=== PATIENT | female | born 1960 | race Caucasian/White ===

== ENCOUNTER 2016-10-15 08:29 | Day surgery (SDC) | payer OTHER ==
--- NOTE | 2016-10-09 10:03 | HP ---
Admitting History and Physical - Primary Care Physician PCP: Bishop Grey - Admission Chief Complaint: Right breast cancer History of Present Illness: 56 year old postmenapausal female with screening mammogram showing right upper outer quadrant assymetry and an US showing 4mm vague density at 12:00 region right breast. 08/2016 Right breast US core biopsy showed invasive ductal carcinoma. MRI breast 07/2016 showed cancer to be loclized at right 10:00 region with suspicious right breast are lower inner aspect which turned out to be tortuous blood vessel. History Source: Patient Limitations to Obtaining History: No Limitations - Past Medical History Endocrine: Yes: Hyperparathyroidism, Other (Hypercalcemia with H/O thymoma) - Past Surgical History Additional Past Surgical History: excision of thymoma and parathyroidectomy 2014 - Smoking History Smoking history: Never smoked Have you smoked in the past 12 months: No - Alcohol/Substance Use Hx Alcohol Use: Yes (rarely) Home Medications - Allergies Allergies/Adverse Reactions: Allergies Allergy/AdvReac Type Severity Reaction Status Date / Time No Known Drug Allergies Allergy Verified 10/10/16 14:16 - Home Medications Home Medications: Ambulatory Orders Calcium Carbonate [Calcium] 500 mg PO DAILY 10/10/16 Cholecalciferol (Vitamin D3) [Vitamin D3] 2,000 unit PO DAILY 10/10/16 Family Disease History - Family Disease History Family History: Denies Physical Examination Constitutional: Yes: Well Nourished Breast(s): Yes: Other (moderately C cup breasts without nipple discharge slight echymosis S/P core biopsy right central breast no palpable suspicious densitites in either breast and no adenopathy bilaterally) Problem List - Problems (1) Breast cancer, right Code(s): C50.911 - MALIGNANT NEOPLASM OF UNSP SITE OF RIGHT FEMALE BREAST Qualifiers: Breast location: upper outer quadrant of breast Patient sex: female Assessment/Plan Right breast wide excision, mammogram needle localization, sentenel node biopsy ,lymphoscintogram, possible axillary node dissection, intraop radiation
[2016-10-10 14:49] VITALS: BMI 28.9
[2016-10-15] MEDS ORDERED: MIDAZOLAM HCL 2 MG/2 ML SINGLE DOSE VIAL ONE (12:07)
[2016-10-15] MEDS ORDERED: ONDANSETRON 4 MG/2 ML VIAL ONE (12:10)
[2016-10-15] MEDS ORDERED: DEXAMETHASONE SOD PHOSPHATE 4 MG/1 ML VIAL ONE (12:10)
[2016-10-15] MEDS ORDERED: KETOROLAC TROMETHAMINE 30 MG/1 ML VIAL ONE (12:10)
[2016-10-15] MEDS ORDERED: ceFAZolin SODIUM 1 GM VIAL ONE (12:10)
[2016-10-15] MEDS ORDERED: ISOSULFAN BLUE 10 MG/ML VIAL SQ ONE (12:39)
[2016-10-15] MEDS ORDERED: BUPIVACAINE HCL/PF 0.5% (5MG/ML) 10 ML VIAL ONE (14:42)
[2016-10-15] MEDS ORDERED: ONDANSETRON 4 MG/2 ML VIAL IVPUSH PRN (14:53)
[2016-10-15] MEDS ORDERED: oxyCODONE HCL 5 MG TABLET PO PRN (14:53)
[2016-10-15] MEDS ORDERED: LACTATED RINGERS SOLUTION 1,000 ML IV SCH (15:00)
[2016-10-15] MEDS ORDERED: ONDANSETRON 4 MG/2 ML VIAL IVPB PRN (16:53)
[2016-10-15] MEDS ORDERED: KETOROLAC TROMETHAMINE 30 MG/1 ML VIAL IVPUSH PRN (16:53)
[2016-10-15] MEDS ORDERED: PROMETHAZINE HCL 25 MG/1 ML VIAL IVPB PRN (16:54)
[2016-10-15] MEDS ORDERED: DEXTROSE 5%-0.45% SALINE 1,000 ML IV SCH (17:00)
[2016-10-15] MEDS ORDERED: PROMETHAZINE HCL 25 MG/1 ML VIAL ONE (17:09)
[2016-10-15] MEDS ORDERED: oxyCODONE HCL 5 MG TABLET ONE (18:37)
[2016-10-15 19:52] VITALS: BP 128/78; PULSE 82; TEMP 98.4
--- NOTE | 2016-10-16 11:41 | OP ---
DATE OF OPERATION: 10/15/2016 PREOPERATIVE DIAGNOSIS: Right breast 12 o'clock cancer overlapping regions. POSTOPERATIVE DIAGNOSIS: Right breast 12 o'clock cancer overlapping regions. PROCEDURE: Right breast partial mastectomy with mammographic needle localization of right axillary sentinel node lymph node biopsy with partial tissue transfer closure and intraoperative radiation with a 4-cm Intrabeam device. PRIMARY SURGERY: Char Grey MD COUNSELOR DORMITORY: JUANITO Dubois RADIATION ONCOLOGIST: Present for the procedure, Aaron Shepherd MD ANESTHESIA: General laryngeal mask airway anesthesia. COMPLICATIONS: None. Briefly, the patient is a 56-year-old postmenopausal white female with [place], [place], and [place]ian[place] ancestry. She has no family of breast or ovarian cancer. She was found to have some asymmetry in the upper outer aspect of the right base on mammography, and ultrasound showed a 4-mm suspicious density, and she underwent an ultrasound-guided core biopsy showing a well-differentiated invasive duct cancer, which was ER/CA positive, HER2/juan francisco negative. MRI showed this to be localized with just a torturous vessel on the lower inner aspect of the right breast. The patient was advised on undergoing a right breast wide excision with needle localization and sentinel node lymph node biopsy. She did consent to intraoperative radiation as part of the target [place] trial. DESCRIPTION OF PROCEDURE: The patient was brought in to ambulatory surgery on October 15, 2016. She first underwent a needle localization and lymphoscintigraphy at [facility] and was brought to the [facility] holding area. In the holding area, site verification was made, and informed consent was obtained. She was brought into the operating room and laid on the OR table in the supine position. Venodynes were placed on the lower extremities. She had one gram of Ancef prior to the incision. She underwent general laryngeal mask airway anesthesia. Then 3 mL of Lymphazurin blue was injected intradermally in the peritumor location around the needle localization side of the right breast. Massage was instituted. The right breast was then sterilely prepped and draped in the usual fashion with the right arm prepped in the field. At this point, the axillary sentinel lymph node biopsy was first performed. Incision was made just below the area of the right axilla, and dissection was undertaken, and a blue lymphatic was seen coursing to a blue, hot node, which had a 10-second Gamma count of 14,176. There were no other blue or hot nodes found. Background count after removal of this node was 656. Hemostasis was achieved. At this point, the axillary wound was closed using interrupted 2-0 plain suture then interrupted 3-0 deep dermal Vicryl suture and a running 4-0 subcuticular Monocryl suture. At this point, the wide excision was undertaken through a periareolar incision around the right breast nipple areolar complex. Dissection was undertaken around the needle localization, and the breast tissue was completely excised from around the needle localization site all the way down to the pectoralis major muscle. Specimen was removed, and it was oriented with a long lateral short superior suture. Specimen radiograph showed a mole over the clip in question. Separate margins were then taken on the superior, medial, inferior, lateral, deep, and anterior margins with suture marking the biopsy cavity sides. These were all sent separately to pathology for permanent section as well as the wide excision and the sentinel lymph nodes. At this point, intraoperative Intrabeam radiation was accomplished using the 4 cm Intrabeam device, and the breast tissue was pursestringed around the device. After about 30 minutes of intraoperative radiation, device was removed. The wound was copiously irrigated and hemostasis achieved. The breast tissue was closed using a 3 x 4 cm tissue transfer closure technique undermining the breast tissue to close the defect. The skin was then closed using interrupted 3-0 deep dermal Vicryl suture and a running 4-0 subcuticular Monocryl suture. Mastisol and Steri-Strips were applied over the wound. A compressive dressing placed over this. She was placed in a surgical bra postoperatively. The patient had the laryngeal mask airway tube removed and will be recovered in the post anesthesia care unit and discharged home the same day once discharge criteria are met. All sponge and needle counts were correct at the end of the case. Estimated blood loss was about 20 mL. She was hemodynamically stable throughout. CHAR GREY M.D. [id number]
--- NOTE | 2016-10-16 11:48 | OP ---
DATE OF OPERATION: 10/15/2016 OPERATION: Intraoperative radiation therapy after lumpectomy. PREOPERATIVE DIAGNOSIS: Stage 1 invasive ductal carcinoma of the right breast. POSTOPERATIVE DIAGNOSIS: Stage 1 invasive ductal carcinoma of the right breast. SURGEON: Bishop Grey MD AUTOMOTIVE BRAKE TECHNICIAN: Andrew Shepherd MD and JUANITO Dubois ANESTHESIA: General laryngeal mask airway. COMPLICATIONS: None. DISPOSITION: Stable. INDICATIONS: The patient is a 56-year-old woman who has a stage 1A [id number] invasive ductal carcinoma of the right breast 12 o'clock position. She has elected to have intraoperative radiation therapy because she is unable to devote many weeks for treatment after lumpectomy. She has just started a new job. DESCRIPTION OF PROCEDURE: After the patient had a sentinel lymph node biopsy and lumpectomy confirmed with post lumpectomy radiographic imaging that the clip was in place, Dr. Grey and Vaibhav measured the cavity. We selected a 4-cm applicator. We took measurements of the applicator in position showing that the skin to applicator distance was 1.5 cm at 12 o'clock, 1.8 at 3 o'clock, 1.3 cm at 6 o'clock, and 1.6 cm at 9 o'clock. The applicator dose rate to the surface was 0.741 Gy/min. The prescribed dose was 2000 cGy. This gave a predicted time of treatment for 26 minutes 59 seconds. After all personnel were removed from the room, the applicator was shielded, and anesthesia was able to monitor through a lead window. We were able to monitor through a lead window the radiation application. The treatment was started. After an elapsed time of 27 minutes and 8 seconds, the treatment was completed. Ionization measurements confirmed that the appropriate dose was delivered. After the treatment was delivered, Dr. Grey and Agustina, his cement tester assistant, scrubbed and removed the applicator. He proceeded to close the wound. We performed double checks and confirmed that treatment was delivered as planned. We will follow with the patient in 2 weeks to review the pathology. ANDREW SHEPHERD M.D. [id number]
--- NOTE | 2016-10-21 13:03 | PATH ---
Surgical Pathology Report Patient Name: BRENDA PATEL [facility]. Rec. #: [id number] /Age/Gender: 1960 (Age: 56) / F Account: [id number] Location: [facility] AMBULATORY Taken: 10/15/2016 Received: 10/15/2016 Reported: 10/21/2016 Physicians: Bishop Grey M.D. Specimen(s) Received A: RIGHT BREAST WIDE EXCISION B: RIGHT SENTINEL NODE #1 C: RIGHT BREAST MEDIAL MARGIN D: RIGHT BREAST SUPERIOR MARGIN E: RIGHT BREAST LATERAL MARGIN F: RIGHT BREAST POSTERIOR MARGIN G: RIGHT BREAST INFERIOR MARGIN H: RIGHT BREAST ANTERIOR MARGIN Clinical History Invasive localized right 12:00 cancer Final Diagnosis A. BREAST, RIGHT, WIDE EXCISION: INVASIVE DUCTAL CARCINOMA, WELL DIFFERENTIATED (JACQUELYN HISTOLOGIC SCORE OF 5: TUBULAR FORMATION 2 OF 3, NUCLEAR PLEOMORPHISM 2 OF 3, MITOTIC RATE 1 OF 3). INVASIVE CARCINOMA FOCALITY AND SIZE: SINGLE FOCUS, 7 MM. FOCAL DUCTAL CARCINOMA IN SITU (DCIS), LOW TO INTERMEDIATE NUCLEAR GRADE, CRIBRIFORM TYPE. LOBULAR CARCINOMA IN SITU (LCIS), CLASSICAL TYPE. FOCAL MAMMARY CARCINOMA IN SITU WITH MIXED DUCTAL AND LOBULAR FEATURES ALSO PRESENT (SEE COMMENT). DCIS AND MIXED IN-SITU CARCINOMA EXTENT: DCIS AND MIXED IN-SITU CARCINOMA ARE FOCAL, MINOR (<25%), ASSOCIATED WITH INVASIVE CARCINOMA. SURGICAL RESECTION MARGINS: NEGATIVE FOR INVASIVE CARCINOMA OR DCIS; INVASIVE CARCINONA IS 0.4 CM FROM CLOSEST RESECTION ASPECT (MEDIAL) IN THIS SPECIMEN; DCIS AND MIXED IN SITU CARCINOMA ARE 0.5 CM FROM THE CLOSEST ASPECT (MEDIAL) IN THIS SPECIMEN; ALSO REFER TO PARTS C-H FOR THE FINAL RESECTION MARGINS. PRIOR BIOPSY SITE CHANGES PRESENT. LYMPHOVASCULAR INVASION: NOT DEFINITVELY IDENTIFIED. PERINEURAL INVASION: NOT IDENTIFIED. SURROUNDING BREAST TISSUE: FIBROCYSTIC CHANGES WITH ADENOSIS, DUCT DILATATION, CYSTS FORMATION AND STROMAL FIBROSIS WITH ASSOCIATED MICROCALCIFICATIONS. PATHOLOGIC STAGING: pT1b pN0(sn) (REFER TO CHECKLIST BELOW). RECEPTOR STATUS: REFER TO CHECKLICT BELOW. Comment: Immunohistochemical stain for E-cadherin performed and interpreted at [facility] on block A1 shows the following: invasive carcinoma cells are strongly positive for E-cadherin with membranous staining; in-situ carcinoma shows foci with strong membranous staining consistent with ductal phenotype, foci with negative staining, consistent with lobular phenotype and small foci of mixed reactivity , most consistent with in situ mammary carcinoma with mixed ductal and lobular features. Immunohistochemical stains for p63 and SMM-HC performed and interpreted at [facility] on block A1 show loss of myoepithelial cells in invasive carcinoma. B. SENTINEL LYMPH NODE #1, RIGHT, BIOPSY: ONE LYMPH NODE NEGATIVE FOR METASTATIC CARCINOMA BY H&E STAIN (0/1). C. BREAST, RIGHT, MEDIAL MARGIN, EXCISION: FOCAL LOBULAR CARCINOMA IN SITU (LCIS), CLASSICAL TYPE. NEGATIVE FOR INVASIVE CARCINOMA OR DCIS. D. BREAST, RIGHT, SUPERIOR MARGIN, EXCISION: FOCAL ATYPICAL LOBULAR HYPERPLASIA (ALH). NEGATIVE FOR INVASIVE CARCINOMA OR DCIS. E. BREAST, RIGHT, LATERAL MARGIN, EXCISION: FOCAL ATYPICAL LOBULAR HYPERPLASIA (ALH). NEGATIVE FOR INVASIVE CARCINOMA OR DCIS. F. BREAST, RIGHT, POSTERIOR MARGIN, EXCISION: BENIGN FATTY TISSUE. NEGATIVE FOR INVASIVE CARCINOMA OR DCIS. G. BREAST, RIGHT, INFERIOR MARGIN, EXCISION: FOCAL LOBULAR CARCINOMA IN SITU (LCIS), CLASSICAL TYPE. NEGATIVE FOR INVASIVE CARCINOMA OR DCIS. H. BREAST, RIGHT, ANTERIOR MARGIN, EXCISION: FOCAL ATYPICAL LOBULAR HYPERPLASIA (ALH). NEGATIVE FOR INVASIVE CARCINOMA OR DCIS. Comments Breast Invasive Carcinoma: Surgical Pathology Cancer Case Summary Based on AJCC/UICC TNM, 7th edition Procedure _x_ Excision with image-guided localization Lymph Node Sampling _x_ [place] lymph node Specimen Laterality _x_ Right Tumor Size: Size of Largest Invasive Carcinoma Greatest dimension of largest focus of invasion over 1 mm: 7 mm (0.7 cm) Tumor Focality _x_ Single focus of invasive carcinoma Macroscopic and Microscopic Extent of Tumor Skin _x_ No skin present Nipple _x_ Not applicable (excisions less than total mastectomy) Skeletal Muscle _x_ No skeletal muscle present Ductal Carcinoma In Situ (DCIS): _x_ DCIS is present _x_ as a minor component (< 25% of tumor) Lobular Carcinoma In Situ (LCIS): _x_ LCIS is present, classical type Histologic Type of Invasive Carcinoma: _x_ Invasive carcinoma of no special type (ductal, not otherwise specified) Histologic Grade: (Jacquelyn Histologic Score) Tubular Differentiation _x_ Score 2 Nuclear Pleomorphism _x_ Score 2 Mitotic Rate _x_ Score 1 Overall Grade _x_ Grade 1: scores of 5 (well differentiated) Margins _x_ Margins uninvolved by invasive carcinoma Distance from closest margin: cannot be determined (additional margins taken, parts C-H) _x_ Margins uninvolved by DCIS Distance from closest margin: cannot be determined (additional margins taken, parts C-H) Lymph-Vascular Invasion _x_ Not identified Lymph Nodes Total number of lymph nodes examined (sentinel and nonsentinel): 1 Number of sentinel lymph nodes examined: 1 Number of lymph nodes with macrometastases (> 2 mm): 0 Number of lymph nodes with micrometastases (>0.2 mm to 2 mm and/or >200cells):0 Number of lymph nodes with isolated tumor cells (=0.2 mm and =200 cells): 0 Size of largest metastatic deposit (if present): n/a Extranodal Extension _x_ Not applicable Pathologic Staging (pTNM) Primary Tumor (Invasive Carcinoma): pT1b Regional Lymph Nodes (pN): pN0(sn) Distant Metastasis (pM): not applicable Biomarker Studies Results of ER and WV studies performed on this specimen (block A1) at [facility] are as follows: ER (clone [id number] mouse monoclonal antibody by [employer]): >95% nuclear staining with strong intensity (Positive). WV (clone16 mouse monoclonal antibody by [employer]): ~80% nuclear staining with strong to moderate intensity (Positive). Results of Her2 and Ki67 studies will be reported separately in an addendum. Positive and negative controls (internal if applicable) show appropriate results. Formalin fixation and cold ischemic times are within current ASCO/CAP recommendations for ER, WV and Her2 testing. Electronically Signed Luis Enrique Maurer M.D. Addendum Reported: 10/22/2016 Addendum Diagnosis Results of Her2 (IHC) & Ki-67 studies performed on block A1 at [place], [place] ([id number]) are as follows: Her2 IHC (EP3 from [employer], formerly known as [id number], using [employer] Polymer Refine detection kit): 0 (Negative) Ki-67: ~5-10% (Low proliferation index) Positive and negative controls (internal if applicable) show appropriate results. Luis Enrique Maurer M.D. Gross Description A. Received in formalin, labeled "right breast wide excision" is a 6.0 x 4.1 x 2.7 cm. levy-yellow, irregular, portion of fibroadipose tissue with a needle localization wire present. There is a short suture marking the superior aspect and a long suture marking the lateral aspect, per the surgeon. There is no skin or nipple present. The specimen is inked as follows: superior and lateral blue; inferior green; medial yellow; anterior red; deep black. The specimen is serially sectioned from superior to inferior. Sectioning reveals a 1.5 x 1.0 x 0.8 cm levy, indurated mass abutting the medial and anterior margins. The remaining margins appear clear of the mass. The remaining breast parenchyma displays foci of firm fibrous tissue. Credit Rating Inspector sections are submitted in 7 cassettes as follows: 1-2-one full face section of mass each (each section displays anterior and medial margins); [id number]-[id number] fibrous tissue with medial and lateral margins; 5-deep margin; 6-superior margin; 7-inferior margin. Time to formalin fixation: 9 minutes Total formalin fixation time: Approximately 27 hours. B. Received in formalin labeled "right sentinel node #1" is a 1.8 x 0.8 x 0.7 cm levy, irregular lymph node with attached fat. The specimen is bisected and entirely submitted in one cassette. C. Received in formalin labeled "right breast medial margin" is a 2.5 x 1.9 x 1.0 cm irregular portion of fibroadipose tissue with a suture marking the biopsy cavity side, per the surgeon. The new margin is inked green and the specimen is serially sectioned. The specimen is entirely submitted in 3 cassettes. D. Received in formalin labeled "right breast superior margin" is a 3.3 x 1.7 x 1.0 cm irregular portion of fibroadipose tissue with a suture marking the biopsy cavity side, per the surgeon. The new margin is inked green and the specimen is serially sectioned. The specimen is entirely and sequentially submitted in 4 cassettes. E. Received in formalin labeled "right breast lateral margin" is a 2.4 x 2.3 x 0.8 cm irregular portion of fibroadipose tissue with a suture marking the biopsy cavity side, per the surgeon. The new margin is inked green and the specimen is serially sectioned. The specimen is entirely and sequentially submitted in 3 cassettes. F. Received in formalin labeled "right breast posterior margin" is a 2.7 x 1.8 x 0.5 cm irregular portion of fibroadipose tissue with a suture marking the biopsy cavity side, per the surgeon. The new margin is inked green and the specimen is serially sectioned. The specimen is entirely submitted in 2 cassettes. G. Received in formalin labeled "right breast inferior margin" is a 2.2 x 1.5 x 0.7 cm irregular portion of fibroadipose tissue with a suture marking the biopsy cavity side, per the surgeon. The new margin is inked green and the specimen is serially sectioned. The specimen is entirely submitted in 2 cassettes. H. Received in formalin labeled "right breast anterior margin" the 2.0 x 1.7 x 0.9 cm irregular portion of fibroadipose tissue with a suture marking the biopsy cavity side, per the surgeon. The new margin is inked green and the specimen is serially sectioned. The specimen is entirely submitted in 2 cassettes. 10/16/[address] [facility]10/16/2016
== END 2016-10-15 19:40 | disposition home or self-care (01) ==
LOC: FASU 08:29
PROVIDERS: ATTEND Surgery Surgical Oncology
PROC: 0HBT0ZZ Excision of Right Breast, Open Approach (ICD-10-PCS; principal; 2016-10-15 14:15)
PROC: DMY17ZZ Contact Radiation of Right Breast (ICD-10-PCS; 2016-10-15 14:15)
PROC: 0HX5XZZ Transfer Chest Skin, External Approach (ICD-10-PCS; 2016-10-15 14:15)
DX: C50.811 Malignant neoplasm of overlapping sites of right female breast (principal)
CPT/HCPCS: 19281; 76641-TC-50; 77290; 77300; 77316; 77332; 77370-TC; 77424; 78195-TC; 88307-TC; 88341-TC; 88342-TC; 94760; A9541; C9726